=== PATIENT | male | born 1980 | race Caucasian/White ===

== ENCOUNTER 2022-11-22 17:48 | Emergency (ER) | payer OTHER, SELFPAY ==
[2022-11-22 17:48] VITALS: BP 134/85; PULSE 85; RESP 16; TEMP 36.7; O2SAT 99
--- NOTE | 2022-11-22 18:00 | RAD_ITS ---
INDICATION: Trauma, twisting ankle injury with pain EXAMINATION/TECHNIQUE: X-RAY - RIGHT XR Ankle Min 3 Views 3 VIEWS COMPARISON: None. FINDINGS: SOFT TISSUES: Lateral ankle swelling. No radiopaque foreign body. BONES/JOINTS: No acute fracture. Joint spaces anatomically aligned. No sclerotic or destructive changes observed. RAD/Ankle min 3 Views IMPRESSION: No acute bony injury. Electronically Signed: David Tijerina MD at 18:32 EDT ,
--- NOTE | 2022-11-22 18:23 | EDS_ITS ---
HPI History of Present Illness HPI Narrative: Patient presents with right ankle injury that occurred today. Patient states he inverted his right ankle after stepping in a hole. Patient states he felt something pop. Patient states the pain is aching. Patient states the pain is worse with weightbearing and with movement. Patient denies any paresthesias or weakness. Patient denies any other injuries. Patient denies any pain over the proximal fibula or fifth metatarsal. Chief Complaint: Lower Extremity Injury Informant: patient Occured/Mechanism Comment: Inversion injury after stepping in a hole Onset/Context/Timing Onset: Today Context: Sudden Onset Timing: Continuous Quality of Pain: Aching Location: Right ankle Worsened by: Weightbearing, movement Relieved by: Rest Associated Symptoms Associated Symptoms: Negative for Parasthesia, Weakness or Loss of Funtion PFSH PFSH Medical History Aorta disorder Esophageal ulcer Fractured bone Allergy/AdvReac Type Severity Reaction Status Date / Time No Known Allergies Allergy Verified 11/22/22 17:48 Family History (Updated 12/26/20 @ 12:45 by Maria Victoria Campbell) Other Heart disease No pertinent family history Surgical History No history of previous surgery Social History Smoking Status: Never smoker Smokeless tobacco user: chewing tobacco alcohol intake: current alcohol intake frequency: holidays/special occasions only Alcohol type: beer substance use type: does not use frequency: daily ROS ROS ED Constitutional Constitutional ED: Denies chills or fever(s) Eyes Eyes: Denies blurry vision or change in vision ENT ENT ED: Denies rhinorrhea or sore throat Cardiovascular Cardiovascular: Denies chest pain or palpitations Respiratory/Chest Respiratory/Chest: Denies cough or dyspnea Gastrointestinal Gastrointestinal: Denies nausea or vomiting Genitourinary Genitourinary ED: Denies dysuria or hematuria Musculoskeletal Musculoskeletal: Denies back pain or neck pain Integumentary Denies abscess or rash Neurologic Neurologic: Denies headache(s) or weakness Allergic/Immunologic Allergic/Immunologic ED: Denies mouth swelling or urticaria EXAM Physical Exam Const Vital Signs: 11/22/22 17:48 Temperature 98.1 F Temperature Source Temporal Pulse Rate 85 Respiratory Rate 16 Blood Pressure 134/85 H Blood Pressure Mean 101 Pulse Ox 99 Positive well nourished and well developed General Appearance ED: well developed and NAD HEENT Reports moist mucous membranes Neck full ROM and supple Extremity Extremity Narrative: There is tenderness and edema over the lateral aspect of the right ankle. There is no obvious deformity noted. There is minimal edema and tenderness of the medial aspect of the right ankle. There is no tenderness over the fifth metatarsal. There is no tenderness over the proximal fibula. Range of motion was limited in all motions of the right ankle secondary to pain. Sensation was intact to light touch in all digits. Capillary refill was less than 2 seconds in all digits. Pedal pulses are equal bilaterally. Neuro oriented x3, CN's II-XII intact bilaterally, moves all extremities and no sensory deficits noted Sensorium / Orientation: alert Motor Exam: strength 5/5 throughout Psych mental status grossly normal MDM MDM MDM Narrative Medical decision making narrative: Differential diagnosis includes fracture and sprain. X-rays of the right ankle will be obtained to assess for fracture. Radiography Diagnostic Testing: Clinical Impression(s) from Imaging Studies Ankle X-Ray 11/22/22 18:00 IMPRESSION: No acute bony injury. Electronically Signed: David Tijerina MD at 18:32 EDT Reading Location ID and State: [facility] / [place] Tel , Service support , X-rays of the right ankle were obtained. There are 3 views. On my independent interpretation, there is no acute fracture. There is no dislocation. There is moderate soft tissue swelling. Radiologist also interpreted the x-rays and agrees. Treatment and Re-Evaluation Narrative: Patient was advised of his findings. Patient was instructed to ice and elevate the right ankle. Patient was given an Aircast. Patient was instructed to take ibuprofen or Tylenol as needed for pain. Patient was instructed to follow-up with his primary care physician in 5 to 7 days. Patient understood and was agreeable with the plan. All questions were answered. Discharge Plan Triage Chief Complaint: Lower Extremity Injury ED Provider: Matty Can Dx/Rx/DC Orders Clinical Impression: Fall, Right ankle sprain Instructions: ED Ankle Sprain (Adult) Primary Care Provider: Cierra Diaz Referrals: Elsa Wu MD [Med Staff - Active Staff] - 5-7 Days Disposition Disposition: Home, Self Care
== END 2022-11-22 19:20 | disposition home or self-care (01) ==
PROVIDERS: Emergency Provider Emergency Medicine; PCP Internal Medicine; Visit Provider Emergency Medicine
DX: S93.401A Sprain of unspecified ligament of right ankle, initial encounter (principal); W17.2XXA Fall into hole, initial encounter
CPT/HCPCS: 73610; 99283